=== PATIENT | female | born 1995 | race African-American/Black ===

== ENCOUNTER 2017-12-13 18:48 | Emergency (ER) | payer OTHER, SELFPAY ==
[2017-12-13 19:36] LABS: Bilirubin Negative (Negative); Blood, Urine Negative (Negative); Clarity TURBID (Clear); Glucose, Urine (Dipstick) Negative (Negative); Leukocyte Negative (Negative); Nitrite Negative (Negative); Protein, Urine (Dipstick) Negative (Neg-Trace); Specific Gravity, Urine 1.027 (1.002-1.036)
[2017-12-13 19:37] LABS: Pregnancy Test - Urine (BHCG) Negative (Negative); Pregu Control Background? CLEAR/WHITE (CLR/WHITE); Pregu Control Bar Appear? YES (CONTROL BAR); Specific Gravity 1.027 (1.002-1.036)
[2017-12-13 19:39] LABS: #Basophils 0.1 thou/uL (0.0-0.2); #Eosinphils 0.2 thou/uL (0.0-0.7); #Lymphocytes 4.6 thou/uL (1.20-3.40); %Basophils 1.5 % (0.0-1.0); %Eosinophils 2.2 % (0.0-10.0); %Monocytes 10.3 % (0.0-10.0); Hemoglobin 12.2 g/dL (12.0-16.0); Mean Corpuscular HGB CONC 32.6 g/dL (32.0-36.0); Mean Corpuscular Hemoglobin 22.3 pg (27.0-31.0); Mean Corpuscular Volume 68.3 fL (78.0-98.0); Mean Platelet Volume 8.5 fL (7.4-10.4); Platelet Count 283 thou/uL (130-400); RBC Distribution Width 13.8 % (11.5-14.5); Red Blood Cell (RBC) Count 5.49 mill/uL (4.20-5.40); White Blood Cell (WBC) Count 10.1 thou/uL (4.8-10.8)
[2017-12-13] MEDS ORDERED: Ondansetron ODT 4 MG TAB ONE (19:49)
[2017-12-13 19:56] LABS: Elliptocytes SLIGHT = 2-5 cells (100X) (0-1/hpf); Hypochromia SLIGHT = 6-15 cells (100X) (0-5/hpf); MDiff Complete? YES; Microcytosis SLIGHT = 6-15 cells (100X) (0-5/hpf); Ovalocytes SLIGHT = 2-5 cells (100X) (0-1/hpf); PLT Morphology Comment Appears Adequate; Polychromasia SLIGHT = 2-3 cells (100X) (0-2/hpf); Target Cells SLIGHT = 2-5 cells (100X) (0-1/hpf)
[2017-12-13 20:06] LABS: ALT (SGPT) 18 U/L (8-55); AST (SGOT) 17 U/L (5-34); Albumin 4.3 g/dL (3.5-5.0); Alkaline Phosphatase 96 U/L (40-150); Anion Gap 14 mmol/L (10-20); BUN (Urea Nitrogen) 10 mg/dL (7.0-18.7); Bilirubin, Total 1.1 mg/dL (0.2-1.2); Calc. Creatinine Clearance 0 mL/min (70-130); Calcium 9.5 mg/dL (7.8-10.44); Carbon Dioxide 24 mmol/L (22-29); Chloride 104 mmol/L (98-107); Estimated GFR-MDRD Greater than 90; Globulin 2.9 g/dL (2.4-3.5); Glucose 79 mg/dL (70-105); Protein, Total 7.2 g/dL (6.0-8.3); Sodium 138 mmol/L (136-145)
== END 2017-12-13 20:20 | disposition home or self-care (01) ==
LOC: ERS 18:48
DX: R11.2 Nausea with vomiting, unspecified (principal)
CPT/HCPCS: 80053; 81003; 81025; 85025; 99283; Q0162

== ENCOUNTER 2018-08-26 20:27 | Emergency (ER) | payer MEDICAID ==
[2018-08-26 21:24] LABS: #Basophils 0.1 thou/uL (0.0-0.2); #Eosinphils 0.2 thou/uL (0.0-0.7); #Lymphocytes 4.4 thou/uL (1.20-3.40); #Neutrophils 6.8 thou/uL (1.40-6.50); %Basophils 1.1 % (0.0-1.0); %Eosinophils 1.5 % (0.0-10.0); %Lymphocytes 35.2 % (21.0-51.0); %Monocytes 8.3 % (0.0-10.0); Anisocytosis SLIGHT = 6-15 cells (100X) (0-5/hpf); Elliptocytes SLIGHT = 2-5 cells (100X) (0-1/hpf); Hemoglobin 10.9 g/dL (12.0-16.0); Hypochromia SLIGHT = 6-15 cells (100X) (0-5/hpf); MDiff Complete? YES; Mean Corpuscular HGB CONC 31.2 g/dL (32.0-36.0); Mean Corpuscular Hemoglobin 21.1 pg (27.0-31.0); Mean Corpuscular Volume 67.8 fL (78.0-98.0); Mean Platelet Volume 8.4 fL (7.4-10.4); Microcytosis SLIGHT = 6-15 cells (100X) (0-5/hpf); Platelet Count 263 thou/uL (130-400); Platelet Morphology Comment Appears Adequate; Poikilocytosis SLIGHT = 6-15 cells (100X) (0-5/hpf); Polychromasia SLIGHT = 2-3 cells (100X) (0-2/hpf); RBC Distribution Width 13.7 % (11.5-14.5); Red Blood Cell (RBC) Count 5.17 mill/uL (4.20-5.40); Target Cells SLIGHT = 2-5 cells (100X) (0-1/hpf); White Blood Cell (WBC) Count 12.5 thou/uL (4.8-10.8)
[2018-08-26 21:30] LABS: Bilirubin Negative (Negative); Blood, Urine Negative (Negative); Clarity Slightly Cloudy (Clear); Glucose, Urine (Dipstick) Negative (Negative); Leukocyte Negative (Negative); Nitrite Negative (Negative); Protein, Urine (Dipstick) Negative (Neg-Trace); Specific Gravity, Urine 1.025 (1.005-1.030); Urobilinogen 0.2 mg/dL (0.2-1.0)
[2018-08-26 21:31] LABS: ALT (SGPT) 28 U/L (8-55); AST (SGOT) 20 U/L (5-34); Albumin 4.3 g/dL (3.5-5.0); Alkaline Phosphatase 79 U/L (40-150); Anion Gap 13 mmol/L (10-20); BUN (Urea Nitrogen) 8 mg/dL (7.0-18.7); Bilirubin, Total 0.8 mg/dL (0.2-1.2); Calc. Creatinine Clearance 0 mL/min (70-130); Calcium 9.4 mg/dL (7.8-10.44); Carbon Dioxide 23 mmol/L (22-29); Chloride 106 mmol/L (98-107); Estimated GFR-MDRD Greater than 90; Globulin 2.9 g/dL (2.4-3.5); Glucose 85 mg/dL (70-105); Protein, Total 7.2 g/dL (6.0-8.3); Sodium 138 mmol/L (136-145)
--- NOTE | 2018-08-26 23:17 | ULT ---
TRANSVAGINAL AND PELVIC ULTRASOUND WITH GUTIÉRREZ SCALE, COLOR FLOW AND SPECTRAL DOPPLER IMAGIN08/26/18 HISTORY: Vaginal bleeding two days ago. Patient is 6 weeks . FINDINGS: A single live intrauterine gestation is seen and measurements corresponding to an estimated gestation al age of 6 weeks, 4 days and MARJORIE at 04/17/19. The crown-rump length measures 0.55 cm and the gestatio nal sac diameter measures 1.89 cm and yolk sac diameter 0.25 cm. The heart rate measures 105 be ats per minute. There is small subchorionic hemorrhage. There is a small right ovarian cyst measuring 1.1 cm. Flow is demonstrated to both ovaries. IMPRESSION: 1. Single live intrauterine gestation of 6 weeks, 4 days estimated gestational age with MARJORIE at 1 06/18/18. 2. Small amount of subchorionic hemorrhage. POS: SULLY
[2018-08-30 00:19] LABS: Chlamydia by PCR Not Detected (NotDetected); GC by PCR Not Detected (NotDetected)
== END 2018-08-26 23:43 | disposition home or self-care (01) ==
LOC: SCSER 20:27
DX: O20.0 Threatened abortion (principal); Z3A.01 Less than 8 weeks gestation of pregnancy
CPT/HCPCS: 36415; 51701; 76856; 80053; 81003; 84702; 85025; 87480; 87491; 87510; 87591; 87660; A4353

== ENCOUNTER 2018-09-17 13:23 | Outpatient (CLI) | payer MEDICAID ==
--- NOTE | 2018-09-17 14:03 | ULT ---
Exam: Transabdominal pelvic ultrasound HISTORY: First trimester . Eval for dates. Comparison none TECHNIQUE: Sagittal and transverse imaging of the gravid uterus is performed FINDINGS: Uterus is identified, measuring 12.6 x 6.8 x 6.0 cm. Within the endometrium, there is a gestational s ac, yolk sac and pole. [place]-rump length is 2.3 cm. Gestational age by crown-rump length is 9 weeks 1 day. heart tones with a rate between 172 and 181 bpm No subchorionic hemorrhage Neither ovary is appreciated. No free fluid IMPRESSION: Single intrauterine gestation with heart tones. Gestational age by crown-rump length is 9 weeks 1 day
== END 2018-09-17 13:24 | disposition home or self-care (01) ==
LOC: BICULT 13:23
PROVIDERS: ATTEND Nurse Practitioner
DX: Z34.01 Encounter for supervision of normal first pregnancy, first trimester (principal); Z3A.09 9 weeks gestation of pregnancy
CPT/HCPCS: 76856

== ENCOUNTER 2018-12-03 14:17 | Outpatient (CLI) | payer OTHER ==
--- NOTE | 2018-12-03 15:41 | ULT ---
OB ULTRASOUND: 12/03/18 HISTORY: anatomy. FINDINGS: A single live intrauterine gestation is seen with measurements corresponding to an estimated gestatio nal age of 20 weeks, 5 days and MARJORIE at 04/17/19. The estimated weight measures 351 grams or 12 o unces. This corresponds to the 43rd percentile by Hadlock criteria. measurements are as follows: BPD 4.92 cm 21 weeks, 0 days HC 18.19 cm 20 weeks, 5 days AC 15.35 cm 20 weeks, 4 days FL 3.25 cm 20 weeks, 1 day heart rate measures 152 beats per minute. Placenta is anteriorly located without evidence of pl acenta previa. [place] measures 11.4 cm. Cervical length measures 2.9 cm. A three vessel cord, cord insertion, kidneys, bladder, stomach, four chambered heart, lateral v entricles, cerebellum, spine, upper and lower extremities are visualized. The lips and nose are not s atisfactorily seen. No definite anomalies are visualized. IMPRESSION: Single viable IUP of 20 weeks, 5 days estimated gestational age and MARJORIE at 04/17/19. POS: T[facility]
== END 2018-12-03 14:18 | disposition home or self-care (01) ==
LOC: BICULT 14:17
PROVIDERS: ATTEND Obstetrics & Gynecology
DX: Z34.02 Encounter for supervision of normal first pregnancy, second trimester (principal); Z3A.20 20 weeks gestation of pregnancy
CPT/HCPCS: 76805

== ENCOUNTER 2019-02-08 15:51 | Outpatient (CLI) | payer OTHER ==
--- NOTE | 2019-02-08 16:25 | ULT ---
EXAM: OB ultrasound COMPARISON: None HISTORY: Evaluate growth in a female TECHNIQUE: Multiplanar grayscale and color Doppler images were obtained in a transabdominal ult rasound. FINDINGS: There is a single live intrauterine with heart rate of 144 bpm. Estimated weight is 1633 g. Average age of the fetus based off today's examination is 31 weeks 1 day. BPD 7.95 cm -- 32 weeks 0 days HC 28.05 cm -- 30 weeks 6 days AC 26.65 cm -- 30 weeks 6 days FL 5.83 cm -- 30 weeks 4 days The placenta is anterior in location without focal abnormality. Amniotic fluid volume is subjectivel y within normal limits. The cervix could not be seen as the fetus is in cephalic presentation. There is no evidence of placenta previa. IMPRESSION: Single live intrauterine with estimated age of 31 weeks 1 day.
== END 2019-02-08 15:52 | disposition home or self-care (01) ==
LOC: BICULT 15:51
PROVIDERS: ATTEND Obstetrics & Gynecology
DX: Z34.03 Encounter for supervision of normal first pregnancy, third trimester (principal); Z3A.31 31 weeks gestation of pregnancy
CPT/HCPCS: 76815

== ENCOUNTER 2019-03-09 23:31 | Day surgery (SDC) | payer OTHER ==
[2019-03-10] MEDS ORDERED: hydrALAZINE 20 MG/ML VIAL SLOW IVP PRN (00:39)
[2019-03-10 00:43] VITALS: BMI 35.6
[2019-03-10 00:44] VITALS: BP 126/72; TEMP 98.3
[2019-03-10] MEDS ORDERED: Lactated Ringer's 1,000 ML IV SCH ×2 (01:15→02:15)
[2019-03-10] MEDS ORDERED: Butorphanol Tartrate 1 MG/ML VIAL SLOW IVP SCH (02:00)
--- NOTE | 2019-03-10 02:00 | PDOC.LDHP ---
Labor and Delivery H&P Chief complaint: contractions HPI: 23 yo BF presents c/o cramping since 10 pm. Denies bleeding or LOF. Current gestational age (weeks): 34 Due date: 04/19/19 Dating criteria: last menstrual period Grav: 2 Para: 0 OB History Details: h/o SAB x 1. PNC with Dr. Yelena Melgar Current complications: none Abnormal US findings: No Past Medical History: none Current medications: pre-olegario vitamins, iron Previous surgical history: none Allergies/Adverse Reactions: Allergies Allergy/AdvReac Type Severity Reaction Status Date / Time No Known Allergies Allergy Verified 03/10/19 00:40 Social history: none - Physical Exam Vital signs reviewed and normal: yes General: resting Lungs: nonlabored breathing Abdomen: gravid Extremeties: trace edema FHT: category 1 [place] contractions every: q 2-5 mins - Vaginal Exam cm dilated: 0 Effacement: 0% - OB Labs Blood type: unknown RH: unknown GBS: unknown - Assessment 34 week IUP UCs r/o PTL - Plan -: Hydrate with IV fluid, Stadol ordered. UA obtained Observe
[2019-03-10 02:17] LABS: Bilirubin Negative (Negative); Blood, Urine Negative (Negative); Clarity Clear (Clear); Glucose, Urine (Dipstick) Normal (Negative); Leukocyte Negative Leu/uL (Negative); Nitrite Negative (Negative); Protein, Urine (Dipstick) Negative (Neg-Trace); RBC/HPF None Seen HPF (0-3); Urobilinogen Normal mg/dL (Less than 2); WBC/HPF 0-3 HPF (0-3)
[2019-03-10 02:32] LABS: Bacteria/HPF 1+ HPF (None Seen)
--- NOTE | 2019-03-10 04:48 | PDOC.EVN ---
Event Note - Event Note Event Note: No furthercramping. Ucs have spaced out. Fhts are stable. UA is in remarkable. DC home with precautions.
== END 2019-03-10 05:08 | disposition home or self-care (01) ==
LOC: L&D/OP 23:31
PROVIDERS: ATTEND Obstetrics & Gynecology
DX: O47.03 False labor before 37 completed weeks of gestation, third trimester (principal); Z3A.37 37 weeks gestation of pregnancy
CPT/HCPCS: 81003

== ENCOUNTER 2019-04-04 23:44 | Day surgery (SDC) | payer OTHER ==
[2019-04-05 00:18] VITALS: BP 140/100; TEMP 99.1; BMI 37.2
[2019-04-05] MEDS ORDERED: hydrALAZINE 20 MG/ML VIAL SLOW IVP PRN (02:30)
[2019-04-05] MEDS ORDERED: hydrOXYzine Pamoate 25 mg Capsule PO SCH (02:45)
--- NOTE | 2019-04-05 05:38 | PRG ---
DATE OF SERVICE: 04/05/2019 TIME OF SERVICE: 0230 hours. The patient presented approximately midnight complaining of contractions every 5 minutes. She denied rupture of membranes. She reported an active fetus. She is 38 weeks gestation by stated MARJORIE. She is scheduled for an induction of labor next week. Antepartum record was not able all to be located. OB AND SALES/MARKETING HISTORY: G2, P0. Denies any complications with this . LABORATORY DATA: Not available. PAST MEDICAL HISTORY: Denies. PAST SURGICAL HISTORY: Denies. ALLERGIES: DENIES. MEDICATIONS: vitamins. SOCIAL HISTORY: Denies tobacco, alcohol, or drug use. FAMILY HISTORY: Noncontributory. REVIEW OF SYSTEMS: Noncontributory. PHYSICAL EXAMINATION: VITAL SIGNS: Blood pressure 126/86, pulse 85, respirations 18, temperature 98.7. HEENT: Within normal limits to auscultation bilaterally. HEART: Regular rhythm. ABDOMEN: Soft and nontender with occasional indentable contractions. FHTs are 140s. Vulva is without lesions. Vaginal exam by RN was 190 and -2 cephalic ballot. LABORATORY STUDIES: monitoring for greater than 20 minutes was obtained x2 with category 1 heart rate tracing persistent accelerations, no significant decelerations except 1 variable noted when the patient was re-hooked up after walking for 2 hours. Monitoring both before and after the variable revealed no abnormalities. After 2 hours reexam, the patient's cervix was unchanged. IMPRESSION: [place] contractions. No evidence of active labor at this time. PLAN: Reassurance, ER precautions, patient to keep scheduled followup with Dr. Melgar this week, and to return to Labor and Delivery, if contractions worsen. Job ID: [id number]
[2019-04-05] MEDS ORDERED: B12 PO SCH (09:00)
[2019-04-05] MEDS ORDERED: IRON CARB GL PO SCH (09:00)
[2019-04-05] MEDS ORDERED: [UNRECOGNIZED DRUG - OTHER] PO SCH (09:00)
[2019-04-05] MEDS ORDERED: Prenatal Vitamin 1 TAB PO SCH (09:00)
[2019-04-05] MEDS ORDERED: DOCUSATE PO SCH (09:00)
== END 2019-04-05 02:45 | disposition home or self-care (01) ==
LOC: L&D/OP 23:44
PROVIDERS: ATTEND Obstetrics & Gynecology
DX: O47.1 False labor at or after 37 completed weeks of gestation (principal); Z3A.38 38 weeks gestation of pregnancy
CPT/HCPCS: Q0177

== ENCOUNTER 2019-04-05 14:07 | Inpatient (IN) | payer OTHER ==
[2019-04-05 15:13] VITALS: BMI 37.2
[2019-04-05 15:18] LABS: Amnisure Test No Membranes Rupture (No Rupture)
[2019-04-05 15:19] LABS: Amnisure Internal Control QC ACCEPTABLE (ACCEPTABLE)
[2019-04-05] MEDS ORDERED: hydrALAZINE 20 MG/ML VIAL SLOW IVP PRN (17:06)
[2019-04-05] MEDS ORDERED: Ondansetron PF 4 MG/2 ML Vial IVP PRN ×2 (17:06→20:46)
[2019-04-05] MEDS ORDERED: Acetaminophen/Codeine 30-300mg Tablet PO PRN ×2 (17:06)
[2019-04-05] MEDS ORDERED: Zolpidem Tartrate 5 MG TAB PO PRN (17:06)
[2019-04-05] MEDS ORDERED: Promethazine HCl 25 MG/ML VIAL IM PRN ×2 (17:06→20:46)
[2019-04-05] MEDS ORDERED: Lidocaine 1% (PF) 30 ML VIAL SC PRN (17:06)
[2019-04-05] MEDS ORDERED: Ibuprofen 800 MG TAB PO PRN (17:06)
[2019-04-05] MEDS ORDERED: NS / Oxytocin 40 units/1000ml 1,000 ML IV PRN (17:06)
[2019-04-05] MEDS ORDERED: Butorphanol Tartrate 1 MG/ML VIAL SLOW IVP PRN (17:06)
[2019-04-05] MEDS ORDERED: Meperidine HCl/PF 25 MG/ML VIAL IM/IV PRN (17:06)
--- NOTE | 2019-04-05 17:14 | PDOC.LDHP ---
Labor and Delivery H&P Chief complaint: contractions HPI: 23 yo LAF here previuosly c/o UCs q 5 mins. Allowed to walk and rechecked; found to have cervical change. Denies bleeding or SROM. Current gestational age (weeks): 38 Due date: 04/19/19 Dating criteria: last menstrual period Grav: 2 Para: 0 OB History Details: PNC with Dr. Yelena Melgar, no complications reported. Current complications: none Abnormal US findings: No Current medications: pre-olegario vitamins, iron Previous surgical history: none Allergies/Adverse Reactions: Allergies Allergy/AdvReac Type Severity Reaction Status Date / Time No Known Allergies Allergy Verified 04/05/19 00:13 Social history: none - Physical Exam Vital signs reviewed and normal: yes General: breathing through contractions Heart: RRR Lungs: nonlabored breathing Abdomen: gravid Extremeties: trace edema FHT: category 1 [place] contractions every: q 2-5 mins - Vaginal Exam cm dilated: 3 Effacement: 90% Station: -1 - OB Labs GBS: negative - Assessment L&D Assessment: term patient in labor - Plan Plan: admit to L&D, labor augmentation if indicated, informed consent obtained, anesthesia consult for pain management, other (Dr. Yelena Melgar notified)
[2019-04-05] MEDS ORDERED: NS w/ Oxytocin 10 units 500 ML IV SCH (17:15)
[2019-04-05] MEDS ORDERED: Lactated Ringer's 1,000 ML IV SCH (17:15)
[2019-04-05 18:18] LABS: Mean Corpuscular HGB CONC 33.5 g/dL (32.0-36.0); Mean Corpuscular Hemoglobin 22.8 pg (27.0-31.0); Mean Corpuscular Volume 68.1 fL (78.0-98.0); Mean Platelet Volume 9.2 fL (7.4-10.4); Platelet Count 255 thou/uL (130-400); Red Blood Cell (RBC) Count 4.36 mill/uL (4.20-5.40); White Blood Cell (WBC) Count 12.9 thou/uL (4.8-10.8)
[2019-04-05 19:00] LABS: Syphilis Antibody Nonreactive (Nonreactive); Syphilis Antibody Index 0.02 S/CO (<1.00 Non-Reactive)
[2019-04-05] MEDS ORDERED: Fentanyl 4 mcg/Bup 0.1% Cadd 100 ML ONE (19:06)
[2019-04-05 19:21] LABS: HBSAg Index 0.14 S/CO (0-0.99); Hep B Surf Ag Non-Reactive S/CO (NonReactive)
[2019-04-05] MEDS ORDERED: ePHEDrine/0.9% NaCl/PF SYRINGE 50 mg/10 ml SLOW IVP PRN (20:46)
[2019-04-05] MEDS ORDERED: Acetaminophen 325 MG TAB PO PRN (20:46)
[2019-04-05] MEDS ORDERED: Lactated Ringer's 500 ML IV PRN (20:46)
[2019-04-05] MEDS ORDERED: Naloxone HCl 0.4 mg/ml Vial IVP PRN ×2 (20:46)
[2019-04-05] MEDS ORDERED: diphenhydrAMINE 50 MG/ML VIAL IVP PRN (20:46)
[2019-04-05] MEDS: Lactated Ringer's 1,000 ML IV SCH (20:49)
[2019-04-05] MEDS ORDERED: Communication Order-Pharmacy FS SCH (21:00)
[2019-04-05] MEDS ORDERED: Fentanyl 4 mcg/Bupivacaine 0.1% Cassette 100 ML EPIDURAL SCH (21:00)
[2019-04-05] MEDS ORDERED: Penicillin G Potassium 5 MILL.UNITS VIAL ONE ×2 (21:09)
[2019-04-05] MEDS ORDERED: Penicillin G Potassium 5 MILL.UNITS in Sodium Chloride 0.9% 100 ML IVPB SCH (21:30)
[2019-04-06] MEDS ORDERED: Lanolin Ointment 7 GM TUBE TOP PRN (00:37)
[2019-04-06] MEDS ORDERED: Benzocaine-Menthol 82.5 ML CAN TOP PRN (00:37)
[2019-04-06] MEDS ORDERED: HYDROcodone/Acetaminophen 5/325 mg Tablet PO PRN ×2 (00:37)
[2019-04-06] MEDS ORDERED: hydrALAZINE 20 MG/ML VIAL SLOW IVP PRN (00:37)
[2019-04-06] MEDS ORDERED: Milk Of Magnesia 30 ML UDCUP PO PRN (00:37)
[2019-04-06] MEDS ORDERED: Preparation H Ointment 28 GM TUBE PR PRN (00:37)
[2019-04-06] MEDS ORDERED: Bisacodyl 10 MG SUPP PR PRN (00:37)
[2019-04-06] MEDS ORDERED: Ondansetron PF 4 MG/2 ML Vial IVP PRN (00:37)
[2019-04-06] MEDS ORDERED: NS / Oxytocin 40 units/1000ml 1,000 ML IV SCH (00:45)
[2019-04-06] MEDS ORDERED: Penicillin G Potassium 2.5 UNITS in Syringe 0 ML IVPB SCH (01:00)
[2019-04-06] MEDS: Ibuprofen 800 MG TAB PO SCH ×3 (08:15→21:28)
[2019-04-06] MEDS ORDERED: Adacel (T-DAP) 0.5 ML SYRINGE IM ONE (09:00)
[2019-04-06] MEDS: Docusate Calcium (SURFAK) 240 MG CAP PO SCH ×2 (09:15→21:29)
[2019-04-06] MEDS: Prenatal Vitamin 1 TAB PO SCH (09:15)
[2019-04-06] MEDS: Ferrous Sulfate 325 MG TAB PO SCH ×2 (09:15→18:12)
[2019-04-06] MEDS: Penicillin G 2.5 MILL.units 50 ML IVPB SCH ×3 (10:29→12:54)
[2019-04-06] MEDS: Lactated Ringer's 1,000 ML IV SCH ×2 (10:30→17:23)
[2019-04-07] MEDS: Lactated Ringer's 1,000 ML IV SCH ×3 (02:19→17:23)
[2019-04-07] MEDS: Ibuprofen 800 MG TAB PO SCH ×2 (06:27→15:12)
[2019-04-07] MEDS: Ferrous Sulfate 325 MG TAB PO SCH ×2 (09:05→17:23)
[2019-04-07] MEDS: Prenatal Vitamin 1 TAB PO SCH (09:05)
[2019-04-07] MEDS: Docusate Calcium (SURFAK) 240 MG CAP PO SCH (09:07)
[2019-04-07 12:16] VITALS: BP 140/84; TEMP 98.9
--- NOTE | 2019-04-08 07:59 | DN ---
DATE OF PROCEDURE: 04/06/2019 PREOPERATIVE DIAGNOSES: 1. A 23-year-old G2, P0-0-1-0, at 38 weeks, presented in active labor with cervical dilation change from 1 cm to 3 cm. 2. Group B Streptococcus positive. 3. Artificial rupture of membranes with clear fluid. 4. Anemia of with a hemoglobin of 10 and a hematocrit of 29.7. POSTOPERATIVE DIAGNOSES: 1. A 23-year-old G2, P0-0-1-0, at 38 weeks, presented in active labor with cervical dilation change from 1 cm to 3 cm. 2. Group B Streptococcus positive. 3. Artificial rupture of membranes with clear fluid. 4. Anemia of with a hemoglobin of 10 and a hematocrit of 29.7. 5. Precipitous delivery, status post amniotomy. 6. Live-born male weighing 7 pounds even with Apgars of 9 and 9 at 1 and 5 minutes respectively. ESTIMATED BLOOD LOSS: Less than 50 mL. ANESTHESIA: Epidural. CLINICAL HISTORY: This patient is a 23-year-old female, G2, P0-0-1-0, who presented at 38 weeks and 1 day for painful regular contractions. She was noted to make cervical change and was admitted. She shortly thereafter requested an epidural and was able to get adequate anesthesia. An amniotomy was then performed with clear fluid. The patient then progressed rapidly to complete +2 cervical dilation in less than 6 hours. DESCRIPTION OF PROCEDURE: With good maternal effort, the patient was able to push the vertex to crown. In the SRIKANTH position, the head was delivered followed by the anterior shoulder, then the posterior shoulder, then the remainder of the infant's body was delivered. The cord was doubly clamped and cut by the father of the baby, and the infant was stimulated and placed on the maternal abdomen. The placenta was spontaneously delivered intact with a 3-vessel cord. Exploration of the vagina, introitus, and cervix revealed no lacerations. The patient was able to recover in her Labor and Delivery room in satisfactory condition with her infant. Again, the infant was a live born male, weighing 7 pounds 0 ounces with Apgars of 9 and 9 at 1 and 5 minutes respectively. All needle, sponge, lap, and instrument counts were correct x2 at the end of the procedure. There were no other issues surrounding this delivery. Job ID: [id number]
== END 2019-04-07 20:05 | disposition home or self-care (01) | DRG 807 ==
LOC: L&D/OP 14:07 → L&D 04-06 00:29 → 3SE 04-06 09:54
PROVIDERS: ADMIT Obstetrics & Gynecology; ATTEND Obstetrics & Gynecology
PROC: 10E0XZZ Delivery of Products of Conception, External Approach (ICD-10-PCS; principal; 2019-04-06)
PROC: 10907ZC Drainage of Amniotic Fluid, Therapeutic from Products of Conception, Via Natural or Artificial Opening (ICD-10-PCS; 2019-04-06)
DX: O99.02 Anemia complicating childbirth (principal); Z37.0 Single live birth; O99.824 Streptococcus B carrier state complicating childbirth; Z3A.38 38 weeks gestation of pregnancy; D64.89 Other specified anemias; O62.3 Precipitate labor
CPT/HCPCS: 36415; 51702; 84112; 85027; 86780; 86850; 86900; 86901; 87340; 99283; 99285; J0595; J2001; J2540; Q0177